=== PATIENT | female | born 1970 | race Native Hawaiian/Other Pacific Islander ===

== ENCOUNTER 2016-11-06 20:03 | Emergency (ER) | payer OTHER ==
[~2016-11-06] VITALS: Ht 175.3 cm; Wt 57.2 kg
[2016-11-06 19:59] VITALS: TEMP 97.8
[2016-11-06 21:00] LABS: PLATELET COUNT 247 K/uL (152-353)
[2016-11-06 21:07] LABS: POTASSIUM 3.6 mmol/L (3.6-5.2); SODIUM 138 mmol/L (136-145)
[2016-11-06 22:58] VITALS: BP 128/82
== END 2016-11-06 22:58 | disposition home or self-care (01) ==
LOC: ED 20:03
PROVIDERS: Specialist
DX: N20.0 Calculus of kidney (principal)
CPT/HCPCS: 36415; 80048; 81000; 85027; 96374; 96375; 99284; J1885; J2550

== ENCOUNTER 2017-02-20 13:37 | Emergency (ER) | payer OTHER ==
[~2017-02-20] VITALS: Ht 175.3 cm; Wt 56.7 kg
[2017-02-20 14:39] VITALS: BP 102/64; TEMP 98.4
== END 2017-02-20 14:48 | disposition home or self-care (01) ==
LOC: ED 13:37
DX: J45.909 Unspecified asthma, uncomplicated (principal)
CPT/HCPCS: 99282

== ENCOUNTER 2017-09-28 23:55 | Outpatient (CLI) | payer OTHER | END 2017-09-29 00:01 | disposition short-term general hospital (02) | LOC: AMB 23:55 | DX: J45.901 Unspecified asthma with (acute) exacerbation (principal) | CPT/HCPCS: A0425; A0427 ==

== ENCOUNTER 2017-09-29 00:12 | Emergency (ER) | payer OTHER ==
[~2017-09-29] VITALS: Ht 175.3 cm; Wt 54.4 kg
[2017-09-29 01:38] LABS: PLATELET COUNT 297 K/uL (152-353)
[2017-09-29 03:30] VITALS: BP 97/69; TEMP 99.8
== END 2017-09-29 03:40 | disposition home or self-care (01) ==
LOC: ED 00:12
PROVIDERS: Specialist
DX: J40 Bronchitis, not specified as acute or chronic (principal); J44.9 Chronic obstructive pulmonary disease, unspecified
CPT/HCPCS: 80048; 85027; 94664; 96374; 99284; J2930

== ENCOUNTER → 2018-05-10 23:48 | Outpatient (CLI) | payer OTHER | END | disposition home or self-care (01) | LOC: AMB 23:48 | DX: G40.89 Other seizures (principal) ==

== ENCOUNTER 2019-04-05 02:54 | Emergency (ER) | payer OTHER ==
[~2019-04-05] VITALS: Ht 175.3 cm; Wt 68.0 kg
[2019-04-05 04:55] VITALS: BP 101/57; TEMP 98.4
== END 2019-04-05 05:13 | disposition home or self-care (01) ==
LOC: ED 02:54
DX: J20.9 Acute bronchitis, unspecified (principal); J45.909 Unspecified asthma, uncomplicated; F17.210 Nicotine dependence, cigarettes, uncomplicated
CPT/HCPCS: 87502; 94664; 96365; 96375; 99284; J2930; J3475

== ENCOUNTER 2019-05-23 17:50 | Emergency (ER) | payer OTHER ==
[~2019-05-23] VITALS: Ht 175.3 cm; Wt 68.0 kg
[2019-05-23 19:32] VITALS: BP 93/57; TEMP 98.3
== END 2019-05-23 19:33 | disposition home or self-care (01) ==
LOC: ED 17:50
DX: J06.9 Acute upper respiratory infection, unspecified (principal); J98.01 Acute bronchospasm; F17.210 Nicotine dependence, cigarettes, uncomplicated
CPT/HCPCS: 87502; 94664; 99283

== ENCOUNTER 2019-07-12 15:25 | Emergency (ER) | payer OTHER ==
[~2019-07-12] VITALS: Ht 175.3 cm; Wt 68.0 kg
[2019-07-12 15:34] VITALS: TEMP 98.1
[2019-07-12 17:09] VITALS: BP 118/74
== END 2019-07-12 16:45 | disposition home or self-care (01) ==
LOC: ED 15:25
DX: J44.0 Chronic obstructive pulmonary disease with (acute) lower respiratory infection (principal); J20.9 Acute bronchitis, unspecified; F17.210 Nicotine dependence, cigarettes, uncomplicated
CPT/HCPCS: 87502; 87651; 96372; 99283; J2930

== ENCOUNTER 2020-02-05 23:48 | Emergency (ER) | payer OTHER ==
[~2020-02-05] VITALS: Ht 175.3 cm; Wt 68.0 kg
[2020-02-05 23:55] VITALS: TEMP 97.6
[2020-02-06 01:08] VITALS: BP 144/88
== END 2020-02-06 01:15 | disposition home or self-care (01) ==
LOC: ED 23:48
DX: J44.1 Chronic obstructive pulmonary disease with (acute) exacerbation (principal); R05 Cough; F17.210 Nicotine dependence, cigarettes, uncomplicated
CPT/HCPCS: 99283

== ENCOUNTER 2021-01-19 09:53 | Outpatient (CLI) | payer OTHER | END 2021-01-19 19:09 | disposition home or self-care (01) | LOC: RAD 09:53 | PROVIDERS: ATTEND Nurse Practitioner Family | DX: J40 Bronchitis, not specified as acute or chronic (principal); Z87.891 Personal history of nicotine dependence ==

== ENCOUNTER 2021-08-08 11:53 | Outpatient (CLI) | payer BC | END 2021-08-08 18:58 | disposition home or self-care (01) | LOC: RAD 11:53 | PROVIDERS: ATTEND Nurse Practitioner Family | DX: J44.1 Chronic obstructive pulmonary disease with (acute) exacerbation (principal) ==

== ENCOUNTER 2021-12-01 13:34 | Outpatient (CLI) | payer BC ==
[~2021-12-01] VITALS: Ht 175.3 cm; Wt 72.6 kg
[2021-12-01 13:54] VITALS: BP 102/63; TEMP 98.9
[2021-12-01 14:40] VITALS: BP 97/60; TEMP 98.6
--- NOTE | 2021-12-01 14:46 | NUR ---
1354 PT AMBULATED TO ROOM 1128 FOR OP INFUSION. VS OBTAINED. 22G PIV TO LAC X 1 ATTEMPT. PT TOLERATED WELL WITH NO COMPLAINTS. 1425 BEBTELOVIMAB IVP OVER 30 SECONDS FOLLOWED BY 10ML NS FLUSH. WITH NO COMPLICATIONS 1440 PT SITTING IN RECLINER ON HER PHONE. PT STATES SHE FELLS OK AT THIS TIME. NO ADVERSE REACTIONS SUSPECTED.
[2021-12-01 14:55] VITALS: BP 104/64; TEMP 98.8
--- NOTE | 2021-12-01 15:20 | NUR ---
PT TOLERATED INFUSION WITH NO ADVERSE REACTIONS SUSPECTED. IV D/C INTACT SITE CARE PROVIDED.
[2021-12-01 15:27] VITALS: BP 92/63; TEMP 98.8
--- NOTE | 2021-12-01 15:27 | NUR ---
PT AMBULATED OUT OF FACILITY TO POV IN NO DISTRESS.
== END 2021-12-01 19:05 | disposition home or self-care (01) ==
LOC: INF 13:34
PROVIDERS: ATTEND Family Medicine
DX: Z23 Encounter for immunization (principal); U07.1 COVID-19
CPT/HCPCS: 96374; Q0222

== ENCOUNTER 2022-12-26 13:47 | Emergency (ER) | payer OTHER ==
[~2022-12-26] VITALS: Ht 175.3 cm; Wt 77.1 kg
[2022-12-26 14:57] VITALS: BP 114/80; TEMP 98.4
== END 2022-12-26 14:57 | disposition home or self-care (01) ==
LOC: ED 13:47
DX: S43.401A Unspecified sprain of right shoulder joint, initial encounter (principal); S40.011A Contusion of right shoulder, initial encounter; W01.0XXA Fall on same level from slipping, tripping and stumbling without subsequent striking against object, initial encounter; F17.210 Nicotine dependence, cigarettes, uncomplicated
CPT/HCPCS: 99282

== ENCOUNTER 2023-01-08 08:12 | Outpatient (CLI) | payer OTHER | END 2023-01-08 19:02 | disposition home or self-care (01) | LOC: MAMMO 08:12 | PROVIDERS: ATTEND Nurse Practitioner Family | DX: Z12.31 Encounter for screening mammogram for malignant neoplasm of breast (principal) ==